=== PATIENT | female | born 1970 | race Caucasian/White ===

== ENCOUNTER → 2024-04-04 08:28 | Outpatient (REF) | payer OTHER, SELFPAY | LOC: HWWDC 08:28 | PROVIDERS: ATTENDING PHYSICIAN Family Medicine | DX: Z12.31 Encounter for screening mammogram for malignant neoplasm of breast (principal) | CPT/HCPCS: 77063; 77067 ==

== ENCOUNTER → 2024-08-26 08:34 | Outpatient (REF) | payer OTHER, SELFPAY | LOC: HWRAD 08:34 | PROVIDERS: ATTENDING PHYSICIAN Obstetrics & Gynecology; FAMILY PHYSICIAN Family Medicine | DX: N95.0 Postmenopausal bleeding (principal) | CPT/HCPCS: 76830; 76856 ==